=== PATIENT | female | born 1980 | race African-American/Black ===

== ENCOUNTER 2021-08-22 09:56 | Emergency (ER) | payer OTHER ==
[~2021-08-22] VITALS: Ht 154.9 cm; Wt 73.0 kg
[2021-08-22] MEDS: ONDANSETRON HCL 4MG/2ML INJ IV STA (12:29)
[2021-08-22] MEDS: MAGNESIUM/ALUMINUM HYDROXIDE/SIMETHICONE 30ML UDC PO STA ×2 (12:29→13:28)
[2021-08-22 12:53] LABS: BASOPHILS % 0.9 % (0.0-2.0); EOSINOPHILS % 1.7 % (0.0-5.0); HEMATOCRIT. 31.4 % (36.0-48.0); HEMOGLOBIN. 10.1 g/dL (12.0-16.0); LYMPHOCYTES % 17.5 % (20.0-50.0); MEAN CORPUSCULAR HEMOGLOBIN 28.1 pg (28.0-32.0); MEAN CORPUSCULAR VOLUME 87.4 fL (81.0-99.0); MEAN PLATELET VOLUME 8.3 fl (7.4-10.4); MONOCYTES % 7.7 % (2.0-8.0); NEUTROPHILS % 72.2 % (40.0-76.0); PLATELET 425 x1000/uL (130-400); RED BLOOD CELL COUNT 3.59 mill/uL (4.2-5.4); RED CELL DISTRIBUTION WIDTH 14.3 % (11.6-14.6)
[2021-08-22 13:04] LABS: CHLORIDE 111 mEq/L (98-107); HCG SCREEN NEGATIVE
[2021-08-22] MEDS: SODIUM CHLORIDE 0.9% 1,000 ML IV ONE ×2 (13:27)
[2021-08-22] MEDS: METOCLOPRAMIDE HCL 10MG/2ML VIAL IV ONE (13:28)
[2021-08-22] MEDS: MORPHINE SULFATE 4 MG/ML CPJ (NOT FOR IM USE) IV ONE (13:37)
[2021-08-22 14:04] LABS: CLARITY URINE CLEAR (CLEAR); COLOR URINE YELLOW (YELLOW); KETONES URINE NEGATIVE (NEGATIVE); LEUKOCYTE ESTERASE URINE NEGATIVE (NEGATIVE); NITRITE URINE NEGATIVE (NEGATIVE); OCCULT BLOOD URINE NEGATIVE (NEGATIVE); PH URINE 7.5 (4.5-8.0); PROTEIN URINE NEGATIVE (NEGATIVE); SPECIFIC GRAVITY URINE 1.008 (1.005-1.030); UROBILINOGEN URINE 0.2 E.U./dL (0.2-1.0)
[2021-08-22] MEDS ORDERED: NAPR-1176 MT (15:32)
[2021-08-22 15:50] VITALS: BP 173/81
== END 2021-08-22 16:04 | disposition home or self-care (01) ==
LOC: ER 09:56
DX: D25.9 Leiomyoma of uterus, unspecified (principal); D64.9 Anemia, unspecified; I49.9 Cardiac arrhythmia, unspecified
CPT/HCPCS: 36415; 71045; 74176; 80053; 81003; 83605; 83690; 84703; 85025; 93005; 96361; 96374; 96375; 99285; J2270; J2405; J2765; J7030; Z7610